=== PATIENT | female | born 1950 | race Caucasian/White ===

== ENCOUNTER 2020-04-22 08:06 | Day surgery (SDC) | payer MEDICARE ==
[~2020-04-22] VITALS: Ht 160 cm; Wt 82.1 kg
[~2020-04-22 08:06] MED LIST: ASPIRIN81 MG PO; IMODIUM2 MG PO; METFORMIN500 M2 PO; METOPROL TAR25 MG PO; OMEGA 31000 MG PO; OZEMPIC2 MG/1.5 M SC; TURMERIC500 MG PO; ZETIA10 MG PO; [UNRECOGNIZED DRUG - OTHER] PO; [UNRECOGNIZED DRUG - OTHER] PO
[2020-04-22 11:23] VITALS: BP 139/78
== END 2020-04-22 11:30 | disposition home or self-care (01) ==
LOC: ENDO 08:06 → ORM 08:45 → ENDO 08:45
PROVIDERS: ATTEND Surgery
PROC: 0DBH8ZX Excision of Cecum, Via Natural or Artificial Opening Endoscopic, Diagnostic (ICD-10-PCS; principal; 2020-04-22)
DX: Z12.11 Encounter for screening for malignant neoplasm of colon (principal); K63.5 Polyp of colon; K57.30 Diverticulosis of large intestine without perforation or abscess without bleeding; Z80.0 Family history of malignant neoplasm of digestive organs; Z20.828 Contact with and (suspected) exposure to other viral communicable diseases

== ENCOUNTER 2022-07-17 10:10 | Day surgery (SDC) | payer MEDICARE ==
[~2022-07-17] VITALS: Ht 160 cm; Wt 81.6 kg
[~2022-07-17 10:10] MED LIST changes: +B COMPLE2 PO; +D31000 UNIT PO; +GABAPENTIN100 MG PO; +ROPINIROLE0.5 MG PO; +TRAZODONE50 MG PO; +VENLAFAXINE75 M1 PO
[2022-07-17 13:09] VITALS: BP 138/61
== END 2022-07-17 13:20 | disposition home or self-care (01) ==
LOC: ENDO 10:10 → ORM 16:30 → ENDO 16:30
PROVIDERS: ATTEND Internal Medicine Gastroenterology
PROC: 0DBK8ZX Excision of Ascending Colon, Via Natural or Artificial Opening Endoscopic, Diagnostic (ICD-10-PCS; principal; 2022-07-17)
PROC: 0DBE8ZX Excision of Large Intestine, Via Natural or Artificial Opening Endoscopic, Diagnostic (ICD-10-PCS; 2022-07-17)
PROC: 0DBL8ZX Excision of Transverse Colon, Via Natural or Artificial Opening Endoscopic, Diagnostic (ICD-10-PCS; 2022-07-17)
PROC: 0DBP8ZX Excision of Rectum, Via Natural or Artificial Opening Endoscopic, Diagnostic (ICD-10-PCS; 2022-07-17)
PROC: 0DBM8ZX Excision of Descending Colon, Via Natural or Artificial Opening Endoscopic, Diagnostic (ICD-10-PCS; 2022-07-17)
PROC: 0DBH8ZX Excision of Cecum, Via Natural or Artificial Opening Endoscopic, Diagnostic (ICD-10-PCS; 2022-07-17)
PROC: 0DB98ZX Excision of Duodenum, Via Natural or Artificial Opening Endoscopic, Diagnostic (ICD-10-PCS; 2022-07-17)
PROC: 0DB78ZX Excision of Stomach, Pylorus, Via Natural or Artificial Opening Endoscopic, Diagnostic (ICD-10-PCS; 2022-07-17)
DX: D12.2 Benign neoplasm of ascending colon (principal); D12.0 Benign neoplasm of cecum; D12.3 Benign neoplasm of transverse colon; K62.1 Rectal polyp; K64.8 Other hemorrhoids; K57.30 Diverticulosis of large intestine without perforation or abscess without bleeding; K29.50 Unspecified chronic gastritis without bleeding; Z80.0 Family history of malignant neoplasm of digestive organs